=== PATIENT | female | born 1990 | race Caucasian/White ===

== ENCOUNTER 2018-06-17 14:22 | Emergency (ER) | payer MEDICAID ==
[~2018-06-17] VITALS: Ht 162.6 cm; Wt 60.0 kg
[2018-06-17 14:27] VITALS: BP 122/83
== END 2018-06-17 15:37 | disposition left against medical advice (07) ==
LOC: ER 14:51
DX: Z53.21 Procedure and treatment not carried out due to patient leaving prior to being seen by health care provider (principal)